=== PATIENT | male | born 2000 | race Caucasian/White ===

== ENCOUNTER 2023-10-28 10:20 | Outpatient (CLI) | payer BC, SELFPAY ==
--- OUTSIDE RECORDS SUMMARY | 2023-10-28 10:23 | XMS_ITS | Clinical Summary ---
Author Name Unknown Organization [facility] Address [place], [place] [address] Care Team Providers Care Clinical Psychiatrist Name Role Phone Oni Diallo MD Primary Care Provider + Allergies No known active allergies Medications Medication Sig Dispensed Refills Start Date End Date Status cholecalciferol (VITAMIN D) 1,000 unit capsule Take 1 capsule by mouth once daily. 0 02/11/2011 Active LEXIE PEN NEEDLE 32 gauge x 5/32 03/18/2016 Active blood sugar diagnostic (FREESTYLE TEST) stripIndications:Ty pe 1 diabetes mellitus without complication (HC) Test 4 times a day 150 Strip 5 02/11/2018 Active Blood-Glucose Sensor (DEXCOM G6 SENSOR) annamaria As directed. 0 12/17/2019 Active glucagon (Baqsimi) 3 mg/actuation spryIndications:Unc ontrolled type 1 diabetes mellitus with hyperglycemia (HC) Inhale into affected nostril(s). use for severe low blood sugar 1 Each 09/08/2020 Active acetone, urine, test (Ketone Urine Test) stripIndications:Ty pe 1 diabetes mellitus without complication (HC) For personal use in case of hyperglycemia 1 Bottle 1 09/08/2020 Active insulin lispro (HumaLOG U-100 Insulin) 100 unit/mL injectionIndication s:Type 1 diabetes mellitus without complication (HC) USE UP TO 120 UNITS PER DAY VIA PUMP 120 mL 1 03/11/2023 Active Active Problems Problem Noted Date Diagnosed Date Diabetic ketoacidosis associ ated with type 1 diabetes mellitus 05/07/2018 Nocturnal enuresis 05/07/2011 Uncontrolled diabetes mellitus type 1 without co mplications 02/25/2011 Overview: diagnosis age 11 Resolved Problems Problem Noted Date Diagnosed Date Resolved Date 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) 07/09/2007 02/27/2017 Immunizations Name Administration Dates Next Due DTaP 11/05/2005, 1,2000,05/30 DTaP-HIB (TriHIBIT) 07/09/2001 HIB-HepB (Comvax) 02/09/2001,2000,05/30/20 00 HPV 9 (Gardasil 9) 09/12/2017,02/25/2017 Hepatitis A (Peds) 02/25/2017 Inactivated Polio Vaccine 11/05/2005,12/2000,2000,05/30 Influenza Virus, Unspecified 05/14/2012 Influenza, IIV3 (Age >=3 years) 05/07/2011 Influenza, IIV4 05/09/2020,02/25/2017,04/29/2016 Influenza, IIV4 (=>6mos) MDV 04/12/2015 MMR 11/05/2005,07/09/2001 Meningococcal Vaccine (Menveo) 02/02/2013 Pneumococcal conj 7-Valent (Prevnar 7) 0 07/09/2001,2000,2000,05/30 Tdap 02/02/2013 Varicella Vaccine 05/07/2011,04/22/2001 Family History Medical History Relation Name Comments Good Health Brother 1 Good Health Brother 2 Good Health Father Walker Diabetes Mother Jeny Thyroid Disease Mother Jeny Hypo Relation Name Status Comments Brother 1 Brother 2 Father Walker Mother Jeny Social History Tobacco Use Types Packs/Day Years Used Date Smoking Tobacco: Never Smokeless Tobacco: Never Tobacco Cessation:Counseling Given: No Alcohol Use Standard Drinks/Week Comments No 0 (1 standard drink = 0.6 oz pur e alcohol) Social Connections Answer Date Recorded Frequency of Communication with Friends and Fami ly Not on file 06/16/2021 Financial Resource Strain Answer Date R ecorded Difficulty of Paying Living Expenses Not on file 06/16/2021 Difficulty of Paying Living Expenses Not on file 06/16/2021 Sex and Gender Information Value Date Recorded Sex Assigned at Not on file Gender Identity Not on file Sexual Orientation Not on file Obstetrics History Last Filed Vital Signs Vital Sign Reading Time Taken Comments Blood Pressure 112/76 09/08/2020 1:18 PM CDT Pulse 72 09/08/2020 1:18 PM CDT Temperature 37.1 ??C (98.8 ??F) 05/08/2018 3:15 PM CS T Respiratory Rate 18 05/08/2018 3:15 PM OPERATIONAL INTELLIGENCE ANALYST Oxygen Saturation 97% 05/08/2018 3:15 PM OPERATIONAL INTELLIGENCE ANALYST Inhaled Oxygen Concentration - - Weight 84.4 kg (186 lb) 09/08/2020 1:18 PM CDT Height 170.2 cm (5' 7) 05/07/2018 7:58 PM OPERATIONAL INTELLIGENCE ANALYST Body Mass Index - - Plan of Treatment Health Maintenance Due Date Last Done Comments HIV for age 15-65 2015 Depression screening for age 12+ 04/29/2017 04/29/2016 HPV series for age 9-26 (3 - Male 3-dose series) 12/05/2017 09/12/2017, 02/25/2017 BMI (ht and wt on same day) for age 18+ 2018 Hepatitis C screening for age 18-79 2018 Tetanus booster 02/02/2023 02/02/2013 COVID-19 vaccine series ( season) 2023 Influenza for age 9-49 02/15/2024 , 02/25/2017, 04/29/2016, Additional history exists Pneumococcal series for age 6-64 Aged Out 07/09/2001, 2000, 2000, Additional history exists No longer eligible based on patient's age to complete this topic Tdap Completed 02/02/2013 Advance Directives * Full Code (Latest Code Status on File) Date Activated Date Inactivated Comments 05/07/2018 11:08 AM 05/08/2018 7:55 PM Question Answer Comments Code Status Discussion: Not Discussed Care Teams Clinical Psychiatrist Relationship Specialty Start Date End Date Oni Diallo MD [address] [place] [address] PCP - General 10/10/05
== END 2023-10-28 10:21 | disposition home or self-care (01) ==
PROVIDERS: PCP Family Medicine; Visit Provider Family Medicine
DX: E10.9 Type 1 diabetes mellitus without complications (principal); R53.83 Other fatigue
CPT/HCPCS: 80048; 80061; 84443

== ENCOUNTER 2024-11-05 12:10 | Outpatient (CLI) | payer BC, SELFPAY | END 2024-11-05 12:11 | disposition home or self-care (01) | PROVIDERS: PCP Family Medicine; Visit Provider Family Medicine | DX: E10.65 Type 1 diabetes mellitus with hyperglycemia (principal); Z79.4 Long term (current) use of insulin | CPT/HCPCS: 80048; 80061 ==

== ENCOUNTER 2025-04-08 12:00 | Outpatient (CLI) | payer BC, SELFPAY | END 2025-04-08 12:01 | disposition home or self-care (01) | LOC: FBOREF 12:01 | PROVIDERS: PCP Family Medicine; Visit Provider Family Medicine | DX: E10.9 Type 1 diabetes mellitus without complications (principal) | CPT/HCPCS: 82043; 82570 ==